=== PATIENT | female | born 2000 | race American Indian/Alaskan Native ===

== ENCOUNTER 2021-01-03 20:33 | Emergency (ER) | payer SELFPAY ==
[2021-01-03] MEDS ORDERED: SODIUM CHLORIDE 0.9% 1000 ML 1,000 ML IV ONE (21:15)
[2021-01-03] MEDS ORDERED: ACETAMINOPHEN 500 MG TAB PO ONE (21:15)
--- NOTE | 2021-01-03 21:15 | Event Note ---
ED Screening Note Date of service: 12/27/20 Time: 21:13 ED Screening Note: 20-year-old -[place] female presents to the emergency room complaining of body aches nausea diarrhea loss of taste and smell cough 4 to 5 days. It was noted the patient is a low-grade fever of 99.7 heart rate is 113. Patient took DayQuil around 7 AM. This initial assessment/diagnostic orders/clinical plan/treatment(s) is/are subject to change based on patients health status, clinical progression and re-assessment by fellow clinical providers in the ED. Further treatment and workup at subsequent clinical providers discretion. Patient/guardian urged not to elope from the ED as their condition may be serious if not clinically assessed and managed. Initial orders include:
[2021-01-03 21:48] LABS: Basophils % (Auto) 0.5 % (0.0-1.8); Eosinophils % (Auto) 0.6 % (0.0-4.3); Hematocrit 38.4 % (30.3-42.9); Hemoglobin 12.8 gm/dl (10.1-14.3); Lymphocytes # (Auto) 1.1 K/mm3 (1.2-5.4); Lymphocytes % (Auto) 36.9 % (13.4-35.0); Mean Corpuscular HGB Conc 33 % (30-34); Mean Corpuscular Volume 95 fl (79-97); Monocytes # (Auto) 0.3 K/mm3 (0.0-0.8); Monocytes % (Auto) 10.5 % (0.0-7.3); Platelet Count 169 K/mm3 (140-440); Red Blood Count 4.06 M/mm3 (3.65-5.03); Red Cell Distribution Width 14.2 % (13.2-15.2)
[2021-01-03 22:15] LABS: Alanine Aminotransferase 11 units/L (7-56); Albumin 4.3 g/dL (3.9-5); BUN/Creatinine Ratio 14; Blood Urea Nitrogen 11 mg/dL (7-17); Calcium 8.6 mg/dL (8.4-10.2); Hemolysis Index 1
--- NOTE | 2021-01-03 22:31 | Emergency Department Report ---
- General Chief Complaint: Headache Stated Complaint: BODYACHES X5DAYS Source: patient Mode of arrival: Ambulatory Limitations: No Limitations - History of Present Illness Initial Comments: Patient is a 20-year-old -[place] female with no past medical history presents to the ED with complaint of acute onset persistent severe diffuse body aches and pains, nasal and sinus congestion, frontal sinus pressure and headache, sore throat, intermittent nausea, persistent dry cough and subjective fever and chills for the last 2 days, worse in the last 12 hours. Patient states that no one else at home has had similar symptoms. Patient denies dizziness, syncope, chest pain, shortness of breath, vomiting, diarrhea, dysuria, urinary frequency and urgency, vaginal bleeding, vaginal discharge, abdominal pain or change in vision and dyspareunia. MD Complaint: fever, cough, sore throat, rhinorrhea, nasal congestion, sinus pain, other (Headache, diffuse body aches and pains, nausea) -: Sudden, days(s) (2) Severity: severe Severity scale (0 -10): 7 Quality: sharp, aching Consistency: constant Improves With: nothing Worsens With: nothing Associated Symptoms: denies other symptoms, fever, chills, myalgias, headache, rhinorrhea, nasal congestion, sore throat, cough, nausea. denies: diaphoresis, stiff neck, chest pain, shortness of breath, abdominal pain, vomiting, diarrhea, dysuria, rash, confusion, weight loss, epistaxis, hoarseness, ear pain, other Treatments Prior to Arrival: none - Related Data Previous Rx's Medication Instructions Recorded Last Taken Type Azithromycin [Zithromax Z-ELEANOR] 250 mg PO DAILY #6 tablet 01/03/21 Unknown Rx Brompheniramine/Pseudoephed/Dm 5 ml PO Q6H PRN #118 ml 01/03/21 Unknown Rx [Bromfed Dm Cough Syrup] Ibuprofen [Motrin] 800 mg PO Q8HR PRN #30 tablet 01/03/21 Unknown Rx Ondansetron [Zofran Odt] 4 mg PO Q8HR PRN #15 tab.rapdis 01/03/21 Unknown Rx Allergies Allergy/AdvReac Type Severity Reaction Status Date / Time No Known Allergies Allergy Verified 01/04/21 00:25 ED Review of Systems ROS: Stated complaint: BODYACHES X5DAYS Other details as noted in HPI Constitutional: chills, fever, malaise Eyes: denies: eye pain, eye discharge, vision change ENT: throat pain, congestion. denies: ear pain Respiratory: cough. denies: shortness of breath, wheezing Cardiovascular: denies: chest pain, palpitations Endocrine: no symptoms reported Gastrointestinal: nausea. denies: abdominal pain, vomiting, diarrhea Genitourinary: denies: urgency, dysuria, discharge Musculoskeletal: arthralgia, myalgia. denies: back pain, joint swelling Skin: denies: rash, lesions Neurological: headache. denies: weakness, paresthesias Psychiatric: denies: anxiety, depression Hematological/Lymphatic: denies: easy bleeding, easy bruising ED Past Medical Hx - Past Medical History Previous Medical History?: No - Surgical History Past Surgical History?: Yes Additional Surgical History: - Social History Smoking Status: Current Every Day Smoker Substance Use Type: Marijuana - Medications Home Medications: Home Medications Medication Instructions Recorded Confirmed Last Taken Type Azithromycin [Zithromax Z-ELEANOR] 250 mg PO DAILY #6 tablet 01/03/21 Unknown Rx Brompheniramine/Pseudoephed/Dm 5 ml PO Q6H PRN #118 ml 01/03/21 Unknown Rx [Bromfed Dm Cough Syrup] Ibuprofen [Motrin] 800 mg PO Q8HR PRN #30 tablet 01/03/21 Unknown Rx Ondansetron [Zofran Odt] 4 mg PO Q8HR PRN #15 tab.rapdis 01/03/21 Unknown Rx ED Physical Exam - General Limitations: No Limitations General appearance: alert, in no apparent distress - Head Head exam: Present: atraumatic, normocephalic, normal inspection - Eye Eye exam: Present: normal appearance, PERRL, EOMI Pupils: Present: normal accommodation - ENT ENT exam: Present: mucous membranes moist, TM's normal bilaterally, normal external ear exam, other (Erythematous swollen bilateral tonsils and oropharynx; grossly congested nasal passages) - Neck Neck exam: Present: normal inspection, full ROM - Respiratory Respiratory exam: Present: normal lung sounds bilaterally. Absent: respiratory distress, wheezes, rales, rhonchi, chest wall tenderness, accessory muscle use, prolonged expiratory - Cardiovascular Cardiovascular Exam: Present: normal rhythm, tachycardia, normal heart sounds. Absent: systolic murmur, diastolic murmur, rubs, gallop - GI/Abdominal GI/Abdominal exam: Present: soft, normal bowel sounds. Absent: tenderness, guarding, rebound, hyperactive bowel sounds, hypoactive bowel sounds, organomegaly - Extremities Exam Extremities exam: Present: normal inspection, full ROM, normal capillary refill - Back Exam Back exam: Present: normal inspection, full ROM. Absent: tenderness, CVA tenderness (R), CVA tenderness (L), muscle spasm, paraspinal tenderness, vertebral tenderness - Neurological Exam Neurological exam: Present: alert, oriented X3, CN II-XII intact, normal gait, reflexes normal - Psychiatric Psychiatric exam: Present: normal affect, normal mood - Skin Skin exam: Present: warm, dry, intact, normal color. Absent: rash ED Course Vital Signs 01/03/21 01/04/21 21:06 00:09 Temperature 99.7 F H Pulse Rate 120 H 92 H Respiratory 18 16 Rate Blood Pressure 135/89 Blood Pressure 111/73 [Left] O2 Sat by Pulse 91 100 Oximetry ED Medical Decision Making - Lab Data Result diagrams: 01/03/21 21:30 01/03/21 21:30 - Radiology Data Radiology results: report reviewed, image reviewed [facility] [address] [place] [address] XRay Report Signed Patient: PATRICK HART MR#: [id number] : 2000 Acct:[id number] Age/Sex: 20 / F ADM Date: 01/03/21 Loc: ED Attending Dr: Ordering Physician: ESTELITA DINH Date of Service: 01/03/21 Procedure(s): XR chest 1V ap Accession Number(s): [id number] cc: ESTELITA DINH Fluoro Time In Minutes: CHEST 1 VIEW 01/03/2021 10:43 PM INDICATION / CLINICAL INFORMATION: cough. COMPARISON: None available. FINDINGS: SUPPORT DEVICES: None. HEART / MEDIASTINUM: No significant abnormality. LUNGS / PLEURA: No significant pulmonary or pleural abnormality. No pneumothorax. ADDITIONAL FINDINGS: No significant additional findings. IMPRESSION: 1. No acute findings. Signer Name: Eusebio Sparrow MD Signed: 01/03/2021 11:45 PM Workstation Name: [id number] Transcribed By: TL Dictated By: Eusebio Sparrow MD Electronically Authenticated By: Eusebio Sparrow MD Signed Date/Time: 01/03/212344 DD/ 44 TD/TT: - Medical Decision Making This is a 20-year-old -Hung[place] female with no past medical history presents to the ED with complaint of acute onset persistent severe diffuse body aches and pains, nasal and sinus congestion, frontal sinus pressure and headache, sore throat, intermittent nausea, persistent dry cough and subjective fever and chills for the last 2 days, worse in the last 12 hours. Patient states that no one else at home has had similar symptoms. In the ED, patient is alert and oriented x3 and is not in any distress, tachycardic, anxious but afebrile. Lab test results were reviewed and are all nonactionable except for mild leukopenia of 3.0. Chest x-ray shows no acute cardiopulmonary abnormalities or pneumonitis. Based on the history and physical exam findings, the patient symptoms are likely due to acute pharyngitis, upper respiratory infection, or bronchitis. Patient was treated for pain in the ED and on reevaluation, patient's pain and tachycardia resolved. Patient will discharge home on medications and advised to follow-up with her primary care physician in 5 to 7 days for reevaluation. Patient advised return to the ED immediately if symptoms get worse. - Differential Diagnosis URI; strep pharyngitis; pneumonia; UTI; flu; COVID-19 Critical care attestation.: If time is entered above; I have spent that time in minutes in the direct care of this critically ill patient, excluding procedure time. ED Disposition Clinical Impression: Flu-like symptoms, Acute bacterial tonsillitis, Acute upper respiratory infection Acute pharyngitis Qualifiers: Pharyngitis/tonsillitis etiology: other specified organisms Qualified Code(s): J02.8 - Acute pharyngitis due to other specified organisms Disposition: -01 TO HOME OR SELFCARE Is pt being admited?: No Does the pt Need Aspirin: No Condition: Stable Instructions: Tonsillitis, [id number], Sore Throat, [id number] Additional Instructions: All lab test results were reviewed and are all nonactionable. Chest x-ray shows no acute cardiopulmonary abnormalities or pneumonitis. Your symptoms are likely due to acute upper respiratory infection versus acute pharyngitis or tonsillitis. Therefore take medication with food, drink plenty of fluids and follow-up with your primary care physician in 5 to 7 days for reevaluation. Return to the ED immediately if symptoms get worse. Prescriptions: Brompheniramine/Pseudoephed/Dm [Bromfed Dm Cough Syrup] 5 ml PO Q6H PRN #118 ml PRN Reason: Cough Ibuprofen [Motrin] 800 mg PO Q8HR PRN #30 tablet PRN Reason: Pain , Severe (7-10) Azithromycin [Zithromax Z-ELEANOR] 250 mg PO DAILY #6 tablet Ondansetron [Zofran Odt] 4 mg PO Q8HR PRN #15 tab.rapdis PRN Reason: Nausea Referrals: [facility] [Provider Group] - 3-5 Days Time of Disposition: 23:56 Print Language: SWISS
[2021-01-03 22:53] LABS: Bilirubin,Urine NEG (Negative); Blood,Urine LG (Negative); Color,Urine Amber (Yellow); Mucus,Urine 2+ /HPF
[2021-01-03 22:59] LABS: HCG Qualitative,Urine Negative (Negative)
--- NOTE | 2021-01-03 23:50 | XRay Report ---
CHEST 1 VIEW 01/03/2021 10:43 PM INDICATION / CLINICAL INFORMATION: cough. COMPARISON: None available. FINDINGS: SUPPORT DEVICES: None. HEART / MEDIASTINUM: No significant abnormality. LUNGS / PLEURA: No significant pulmonary or pleural abnormality. No pneumothorax. ADDITIONAL FINDINGS: No significant additional findings. IMPRESSION: 1. No acute findings. Signer Name: Eusebio Sparrow MD Signed: 01/03/2021 11:45 PM Workstation Name: [id number]
[2021-01-04 00:10] VITALS: BP 111/73
[2021-01-04] MEDS ORDERED: ACETAMINOPHEN 500 MG TAB ONE (00:12)
== END 2021-01-04 00:24 | disposition home or self-care (01) ==
LOC: ED 20:33
DX: J03.80 Acute tonsillitis due to other specified organisms (principal); B96.89 Other specified bacterial agents as the cause of diseases classified elsewhere; J03.90 Acute tonsillitis, unspecified; F17.200 Nicotine dependence, unspecified, uncomplicated; F12.10 Cannabis abuse, uncomplicated; Z79.899 Other long term (current) drug therapy
CPT/HCPCS: 36415; 71045; 80053; 81001; 81025; 85025; 87086

== ENCOUNTER 2022-02-25 12:01 | Emergency (ER) | payer SELFPAY | END 2022-02-25 18:40 | disposition left against medical advice (07) | LOC: ED 12:01 | DX: S93.409A Sprain of unspecified ligament of unspecified ankle, initial encounter (principal); Z53.21 Procedure and treatment not carried out due to patient leaving prior to being seen by health care provider; X58.XXXA Exposure to other specified factors, initial encounter; Y93.89 Activity, other specified; Y92.89 Other specified places as the place of occurrence of the external cause; Y99.8 Other external cause status ==